=== PATIENT | male | born 1960 | race American Indian/Alaskan Native ===

== ENCOUNTER 2017-07-03 07:46 | Day surgery (SDC) | payer MEDICARE, MEDICAID ==
[2017-06-26 14:04] VITALS: BMI 25.3
[2017-07-03] MEDS ORDERED: Propofol 10 mg/ml Inj (20 ML) ONE ×2 (07:52→08:05)
[2017-07-03] MEDS ORDERED: Midazolam 2 MG/2 ML VIAL ONE ×4 (08:06→08:34)
[2017-07-03] MEDS ORDERED: Iodixanol 320 MG/ML 200 ML BOTTLE IV ONE (08:42)
[2017-07-03] MEDS ORDERED: Iodixanol 320 MG/ML 100 ML BOTTLE IV ONE (08:42)
[2017-07-03] MEDS ORDERED: Lidocaine 2% Inj (20ml) ONE (08:47)
--- NOTE | 2017-07-03 09:30 | PCM.SURG1 ---
Surgeon's Initial Post Op Note - Surgeon's Notes Surgeon: Dr. Cary Pipe Line Gauger: Staci Pedroza PGY2 Type of Anesthesia: Local Pre-Operative Diagnosis: R leg claudication Operative Findings: R SFA stenosis, extensive collateral arteries. Patent R DP. Post-Operative Diagnosis: R leg claudication Operation Performed: LE angiography Specimen/Specimens Removed: none Estimated Blood Loss: EBL {In ML}: 10 Blood Products Given: N/A Drains Used: No Drains Post-Op Condition: Good Date of Surgery/Procedure: 07/03/17 Time of Surgery/Procedure: 09:30
--- NOTE | 2017-07-03 09:31 | PCM.SURG1 ---
Surgeon's Initial Post Op Note - Surgeon's Notes Surgeon: [facility] Social Worker: cari Type of Anesthesia: IV Sedation Anesthesia Administered By: shaye Pre-Operative Diagnosis: claudication right leg Operative Findings: severe popliteal and tibial disease/ sfa ptfe graft open. right profunda occluded. major run off is via posterior tibial to foot Post-Operative Diagnosis: same Operation Performed: aortofemoral angiogram via left groin with selective catherization of right femoral artery Specimen/Specimens Removed: 0 Estimated Blood Loss: EBL {In ML}: 15 Blood Products Given: N/A Drains Used: No Drains Post-Op Condition: Good Date of Surgery/Procedure: 07/03/17 Time of Surgery/Procedure: 09:32
[2017-07-03] MEDS ORDERED: Oxycodone/Acetaminophen 5/325 mg Tab PO PRN (10:00)
[2017-07-03] MEDS ORDERED: Albuterol HFA 90 mcg/actuation (8 g) INH PRN (10:00)
[2017-07-03 13:02] VITALS: BP 110/72; PULSE 58; RESP 18; TEMP 97.9; O2SAT 99
--- NOTE | 2017-07-03 23:49 | OP ---
DATE: 07/03/2017 PREOPERATIVE DIAGNOSIS: Claudication, right leg. POSTOPERATIVE DIAGNOSIS: Claudication, right leg. PROCEDURE CARRIED OUT: Aortofemoral angiogram via left groin with selective catheterization of right femoral artery. No intervention. SURGEON: Jeb Cary Jr., MD STRIPPER AND PRINTER: Dr. Christine. ANESTHESIOLOGIST: Mr. Kristopher Diaz CRNA. INDICATIONS: The patient is a 57-year-old man with history of previous failed interventions in groin, and then subsequently a PTFE bypass in his common femoral to the above-knee superficial femoral artery. He was seen for increasing claudication in the right leg. OPERATIVE FINDINGS: The aorta and renal arteries were free of significant occlusive disease. Both common, internal, and external iliac arteries were free of significant occlusive disease. On the left side, the superficial femoral artery was widely patent, profunda femoris was patent, the popliteal was patent and all 3 tibial vessels were seen down to the level of the foot. On the right side, there was a high-grade stenosis of over 80% approximately 4 inches below the previous PTFE graft with some collaterals coming off, below this the popliteal was occluded. The anterior tibial reconstituted below the trifurcation and the posterior tibial artery which is the major vessel and it is quite reconstituted in the mid-calf. The dorsalis pedis also reconstituted via collaterals. Subsequent to the performance, initially we then advanced the catheter over the aortic bifurcation positioning the catheter in the proximal portion of the graft, we did take more detailed films that showed the above mentioned findings. Catheter was then removed from the left groin, the pressure was applied. No closure device was used. Blood loss in the procedure 15 mL. Operation carried out, aortofemoral angiogram, the left via left groin with selective catheterization of the right femoral artery. No intervention undertaken. Treatment will be monitoring and observation, there are no plans for any surgical intervention at this time for the level of symptoms that the patient has with chest claudication. Jeb Cary Jr., MD
== END 2017-07-03 13:30 | disposition home or self-care (01) ==
LOC: C.SPRAD 07:46
PROVIDERS: ATTEND Surgery Vascular Surgery
DX: I73.9 Peripheral vascular disease, unspecified (principal)
CPT/HCPCS: 36246; J1644; J2250; J2704; J3010; Q9966; Q9967

== ENCOUNTER 2018-11-07 18:24 | Emergency (ER) | payer MEDICARE, MEDICAID ==
[2018-11-07 18:24] VITALS: BMI 25.3
[2018-11-07 18:32] VITALS: TEMP 98
--- NOTE | 2018-11-07 19:32 | C.PDOC ---
History Of Present Illness Patient presents to the ER with a complaint of right chest wall pain after he tripped and fell down the stairs yesterday and hurt his right chest. He is currently speaking in complete sentences. Denies fever, chills, nausea, or vomiting. Time Seen by Provider: 11/07/18 19:27 Chief Complaint (Nursing): Rib Injury History Per: Patient History/Exam Limitations: no limitations Onset/Duration Of Symptoms: Days Current Symptoms Are (Timing): Still Present Severity: Moderate Pain Scale Rating Of: 5 Recent travel outside of the [place]: No Past Medical History Reviewed: Historical Data, Nursing Documentation, Vital Signs Vital Signs: Last Vital Signs Temp 98 F 11/07/18 18:27 Pulse 65 11/07/18 18:27 Resp 16 11/07/18 18:27 BP 137/89 11/07/18 18:27 Pulse Ox 97 11/07/18 18:27 - Medical History PMH: COPD, Deep Vein Thrombosis, HTN Denies: Chronic Kidney Disease Surgical History: Appendectomy - [facility] Procedures CONTRAST AORTOGRAM (07/02/14) CONTRAST ARTERIOGRAM NEC (10/13/13) CONTRAST ARTERIOGRAM-LEG (07/02/14) OTHER ENDOVASCULAR PROCEDURES ON OTHER VESSELS (07/23/13) Family History: States: No Known Family Hx - Social History Hx Tobacco Use: Yes Hx Alcohol Use: No Hx Substance Use: No - Immunization History Hx Tetanus Toxoid Vaccination: Yes Hx Influenza Vaccination: No Hx Pneumococcal Vaccination: No Review Of Systems Constitutional: Negative for: Fever, Chills Cardiovascular: Negative for: Chest Pain, Palpitations Respiratory: Negative for: Cough, Shortness of Breath Gastrointestinal: Negative for: Nausea, Vomiting Musculoskeletal: Positive for: Other (Right chest wall pain) Neurological: Negative for: Weakness, Numbness Physical Exam - Physical Exam Appears: Non-toxic Skin: Warm, Dry Head: Normacephalic Oral Mucosa: Moist Neck: Trachea Midline, Supple Chest: Tenderness (Mid axillary line, no crepitus), Other (CABG) Cardiovascular: Rhythm Regular Respiratory: No Rales, No Rhonchi, No Wheezing Gastrointestinal/Abdominal: Soft, No Tenderness Neurological/Psych: Oriented x3 Gait: Steady ED Course And Treatment O2 Sat by Pulse Oximetry: 97 (Room air) Pulse Ox Interpretation: Normal Progress Note: CT chest ordered. Reevaluation Time: 21:40 Reassessment Condition: Improved Medical Decision Making Medical Decision Making: Upon provider reevaluation patient is feeling better, is medically stable, and requires no further treatment in the ED at this time. Patient will be discharged home with Rx for motrin. Counseling was provided and all questions were answered regarding diagnosis and need for follow up with dr vega. There is agreement to discharge plan. Return if symptoms persist or worsen. Disposition Counseled Patient/Family Regarding: Studies Performed, Diagnosis, Need For Followup - Disposition Referrals: Joby Vega MD [Staff Provider] - Disposition: HOME/ ROUTINE Disposition Time: 19:32 Condition: FAIR Additional Instructions: Please return if symptoms recur Instructions: Bruised Rib (DC) Forms: [employer] (Persian) - Clinical Impression Clinical Impression: Bruised ribs - Scribe Statement The provider has reviewed the documentation as recorded by the Scribcarmen Tafoya All medical record entries made by the Scribe were at my direction and personally dictated by me. I have reviewed the chart and agree that the record accurately reflects my personal performance of the history, physical exam, medical decision making, and the department course for this patient. I have also personally directed, reviewed, and agree with the discharge instructions and disposition.
[2018-11-07 22:01] VITALS: BP 131/86; PULSE 78; RESP 20; O2SAT 98
--- NOTE | 2018-11-08 11:02 | CT ---
Date of service: 11/07/2018 PROCEDURE: CT Chest without contrast HISTORY: fall, r rib pain, COMPARISON: None available. TECHNIQUE: Contiguous axial images were obtained through the chest without intravenous contrast enhancement. Sagittal and coronal reconstructions were performed. Radiation dose: Total exam DLP = 627.67 mGy-cm. This CT exam was performed using one or more of the following dose reduction techniques: Automated exposure control, adjustment of the mA and/or kV according to patient size, and/or use of iterative reconstruction technique. FINDINGS: LUNGS: The lungs are well inflated. There is multifocal patchy ground-glass attenuation in the right upper lobe. There are few scattered small nodules in the lungs predominantly in the upper lobes, the largest subpleural nodule in the right upper lobe measures 4 mm. (Series 3, image 35). There is paraseptal emphysema in the upper lobes. There is scattered centrilobular emphysema in the lungs. There are no endobronchial lesions. There is bibasilar subsegmental atelectasis. MEDIASTINUM: Unremarkable thoracic aorta. No aneurysm. Mild cardiomegaly. Status post CABG. Main pulmonary artery unremarkable. No vascular congestion. There are calcified right hilar lymph nodes. No pathologic adenopathy. There are aortic atherosclerotic calcifications. PLEURA: No pleural fluid. No pneumothorax. BONES: No acute fracture. No destructive lesion. UPPER ABDOMEN: Cortical scarring in both kidneys and small right kidney. Small nonobstructing stones in both kidneys. Simple cyst in the upper pole of the left kidney. OTHER FINDINGS: There is a small sliding hiatal. IMPRESSION: 1. No acute findings. 2. Small scattered nodules in the lungs, the largest subpleural nodule in the right upper lobe measures 4 mm. Findings may be infectious or inflammatory in etiology. Metastatic nodules cannot be entirely excluded. However given presence of calcified right hilar lymph nodes there likely post inflammatory in etiology. Follow-up CT scan in 6-12 month interval is recommended to assess stability of these nodules. 3. Multifocal patchy ground-glass attenuation in the right upper lobe may represent nonspecific infection/inflammation. A preliminary report was provided by [facility].
== END 2018-11-07 22:01 | disposition home or self-care (01) ==
LOC: C.ER 18:24
DX: S20.219A Contusion of unspecified front wall of thorax, initial encounter (principal); W10.9XXA Fall (on) (from) unspecified stairs and steps, initial encounter